=== PATIENT | female | born 1955 | race Caucasian/White ===

== ENCOUNTER → 2017-08-21 | Outpatient (CLI) | payer MEDICARE, OTHER ==
[~2017-08-21] MED LIST: ACET650T9 PO; ALE70 PO; ALL-DPT PO; AMIT-108 PO; AMOX-559 PO; ASP81 PO; AZEL50GE4 TP; AZIT-1 PO; BIOTENE DRY MO237 ML MM; CALC-515 PO; CALC500T42 PO; CEFD300C35 PO; CHOL200074 PO; CLIN30GE14 TP; DAR100 PO; DEXL30CA5 PO; DIA2 PO; DIAZ-308 PO; DIC10 PO; DIPH-638 PO; DULO30CA6 PO; DULO60CA56 PO; DYA PO; ESTR42.59 VG; ESZO1TAB16 PO; FAMO-64 PO; FENO45CA PO; FENO54TA6 PO; FEXO1TAB63 PO; FLAX100041 PO; FLUT10SP; FLUT16SP20 NS; FURO-45 PO; GABA-503 PO; GABA-549 PO; GUALA600 PO; HYDR-317 PO; HYDR-385 PO; HYDR-389 PO; HYDR28.33 PR; HYDR2TAB41 PO; IBU200 PO; LAN30PT PO; LEV100 PO; LEVO-3 PO; LEVO-85 PO; LEVO100T95 PO; LEVO112T44 PO; LIDO700A29 TD; LIFI1DRO OU; MAGN30TA5 PO; MAX75 PO; MELA1TAB23 PO; MELO-149 PO; METH4TAB66 PO; METO-253 PO; METO25TA23 PO; METR1COM3 TP; MIL50PT PO; MONT10TA PO; ONDA4TAB PO; ONDA4TAB97 PO; OXYM-1 ENA; PANT40TA65 PO; PER PO; POTA20TA94 PO; PRED20TA6 PO; RANI-324 PO; RANI75TA5 PO; TRAM-420 PO; TRIA1CAP85 PO; TYLENOL ARTHRITIS; ZOST19404 SQ; [UNRECOGNIZED DRUG - CODE] PO; [UNRECOGNIZED DRUG - CODE] PO; estrogen cream VG
== END ==
LOC: RESP 02:51
PROVIDERS: ATTEND Nurse Practitioner Family
DX: G47.33 Obstructive sleep apnea (adult) (pediatric) (principal)

== ENCOUNTER → 2017-09-29 | Outpatient (CLI) | payer MEDICARE, OTHER | LOC: RESP 19:52 | PROVIDERS: ATTEND Nurse Practitioner Family | DX: G47.33 Obstructive sleep apnea (adult) (pediatric) (principal); G47.36 Sleep related hypoventilation in conditions classified elsewhere; E66.9 Obesity, unspecified ==

== ENCOUNTER → 2017-10-06 | Outpatient (CLI) | payer MEDICARE, OTHER ==
--- NOTE | 2017-10-06 10:00 | RADIOLOGY IMAGING REPORT ---
FACILITY: [facility] PATIENT NAME: ISI MORALES : [id number] MR: [id number] V: [id number] EXAM DATE: ORDERING PHYSICIAN: JOMAR QUIROZ TECHNOLOGIST: Pratima Francisco PROCEDURE:BILATERAL DIGITAL SCREENING MAMMOGRAM WITH CAD ASSISTED INTERPRETATION & 3D TOMOSYNTHESIS COMPARISON:Prior mammograms 09/06/16, 08/25/15, 04/24/13, 05/05/11. INDICATIONS:SCREENING FINDINGS: A small amount of fibroglandular tissue is seen throughout the breasts. The parenchymal pattern has remained stable allowing for difference in mammographic technique & patient positioning. There is no evidence of malignant appearing mass, malignant appearing calcifications or other secondary sign of malignancy in either breast. DIAGNOSTIC CATEGORY 1--NEGATIVE. RECOMMENDATIONS: ROUTINE MAMMOGRAM AND CLINICAL EVALUATION. IMPRESSION: BIRADS 1: Negative No significant abnormality is seen. Dictated by: Bren Man M.D. on 10/06/2017 at 9:14 Transcribed by: ARYA on 10/06/2017 at 9:19 Approved by: Bren Man M.D. on 10/06/2017 at 9:59 [facility]
== END ==
LOC: MAMO 04:03
PROVIDERS: ATTEND Nurse Practitioner Family
DX: Z12.31 Encounter for screening mammogram for malignant neoplasm of breast (principal)
CPT/HCPCS: 77063; 77067

== ENCOUNTER → 2017-11-22 | Outpatient (CLI) | payer MEDICARE, OTHER ==
[~2017-11-22] MED LIST changes: -RANI-324 PO; +RANI-366 PO; +ZOLP-1 PO; +ZOLP-358 PO
== END ==
LOC: RESP 20:55
PROVIDERS: ATTEND Nurse Practitioner Family
DX: G47.33 Obstructive sleep apnea (adult) (pediatric) (principal); G47.61 Periodic limb movement disorder; G47.36 Sleep related hypoventilation in conditions classified elsewhere; E66.9 Obesity, unspecified

== ENCOUNTER → 2018-05-17 | Outpatient (CLI) | payer MEDICARE, OTHER ==
[~2018-05-17] MED LIST changes: +ALB18R IH; +CELE-1 PO; -RANI75TA5 PO; +RANI75TA51 PO
--- NOTE | 2018-05-17 10:45 | RADIOLOGY IMAGING REPORT ---
FACILITY: [facility] PATIENT NAME: Lucie Encarnacion : 1955 MR: [id number] V: [id number] EXAM DATE: ORDERING PHYSICIAN: JOMAR QUIROZ TECHNOLOGIST: Location: [facility] Patient: Lucie Encarnacion : 1955 Visit/Account:[id number] Date of Sevice: 05/17/2018 WRIST RIGHT MIN 3 VIEW Indication: Pain after fall Comparison: None Available Findings: No evidence of fracture, dislocation, or acute osseous abnormality right wrist. No evidence of radiopaque foreign body. There is no focal soft tissue abnormality. IMPRESSION: 1.No acute osseous abnormality right wrist Report Dictated By: Gasper Rodas at 05/17/2018 10:39 AM Report E-Signed By: Gasper Rodas at 05/17/2018 10:40 AM WSN:[id number]
--- NOTE | 2018-05-17 10:46 | RADIOLOGY IMAGING REPORT ---
FACILITY: [facility] - [place], [place] PATIENT NAME: Lucie Encarnacion : 1955 MR: [id number] V: [id number] EXAM DATE: ORDERING PHYSICIAN: JOMAR QUIROZ TECHNOLOGIST: Location: [facility] [place] Patient: Lucie Encarnacion : 1955 Visit/Account:[id number] Date of Sevice: 05/17/2018 ELBOW 3 VIEWS RIGHT Indication: Pain after fall Comparison: None Available Findings: No evidence of fracture, dislocation, or acute osseous abnormality right elbow. There is a trace joint effusion. There is no focal soft tissue abnormality. No evidence of radiopaque foreign body. IMPRESSION: 1. Small joint effusion but no fracture is identified. Report Dictated By: Gasper Rodas at 05/17/2018 10:40 AM Report E-Signed By: Gasper Rodas at 05/17/2018 10:41 AM WSN:[id number]
== END ==
LOC: LAB 08:57
PROVIDERS: ATTEND Nurse Practitioner Family
DX: M25.431 Effusion, right wrist (principal); M25.531 Pain in right wrist

== ENCOUNTER 2018-08-23 00:07 | Day surgery (SDC) | payer MEDICARE, OTHER ==
[~2018-08-23] VITALS: Ht 167.6 cm; Wt 71.7 kg
[~2018-08-23 00:07] MED LIST changes: -GABA-503 PO; +GABA-533 PO; +LIDOCAINE/SOD BICARB 8.4% SYR ID ONE; +NORMOSOL R SOLN(*) 1000 ML BAG 1,000 ML IV PRN; +OMEP-218 PO; +PNEU0.5D3 IM
[2018-08-23 07:50] VITALS: BP 128/78
[2018-08-23] MEDS ORDERED: LIDOCAINE/SOD BICARB 8.4% SYR ID ONE (08:00)
[2018-08-23] MEDS ORDERED: NORMOSOL R SOLN(*) 1000 ML BAG 1,000 ML IV PRN (08:00)
[2018-08-23] MEDS ORDERED: PROPOFOL EMUL(*) 10MG/ML 20 ML 20 ML ONE ×2 (08:17→09:26)
[2018-08-23 09:41] VITALS: BP_SYST 109; BP_SYST 190; BP_DIAS 80
[2018-08-23 10:00] VITALS: BP 120/72
[2018-08-23 10:16] VITALS: BP 128/64
[2018-08-23 10:21] VITALS: BP 120/75
[2018-08-24] MEDS ORDERED: FENO54TA6 PO (13:20)
== END 2018-08-23 10:38 | disposition home or self-care (01) ==
LOC: OR 00:07
PROVIDERS: ATTEND Internal Medicine Gastroenterology
DX: K44.9 Diaphragmatic hernia without obstruction or gangrene (principal); K20.9 Esophagitis, unspecified; K22.2 Esophageal obstruction; K29.70 Gastritis, unspecified, without bleeding; K31.7 Polyp of stomach and duodenum
CPT/HCPCS: 43248; 43251; 88305; 88313; 88344; J2704

== ENCOUNTER → 2018-10-25 | Outpatient (CLI) | payer MEDICARE, OTHER ==
[~2018-10-25] MED LIST changes: -LIDOCAINE/SOD BICARB 8.4% SYR ID ONE; -NORMOSOL R SOLN(*) 1000 ML BAG 1,000 ML IV PRN
--- NOTE | 2018-10-25 10:29 | RADIOLOGY IMAGING REPORT ---
FACILITY: [facility] - [place] PATIENT NAME: Lucie Encarnacion : 1955 MR: [id number] V: [id number] EXAM DATE: ORDERING PHYSICIAN: JOMAR QUIROZ TECHNOLOGIST: Location: [facility] [place] Patient: Lucie Encarnacion : 1955 Visit/Account:[id number] Date of Sevice: 10/25/2018 DEXA Scan 10/25/2018 9:20 AM HISTORY: screening Comparison: DEXA scan from 05/11/2007. LUMBAR SPINE: The bone mineral density (BMD) measured from L1-L4 correlates with a Z-score of 0.1 and a T-score of -1.2 which is mildly osteopenic as defined by the World Health Organization. The corresponding risk of fracture in the lumbar spine is increased 2-3 times compared with a young adult reference populati on. This value has decreased by 1.5 % since the prior study. More than 5% change is considered sign ificant. HIP: Bone mineral density (BMD) measured in the Left total hip region correlates with a Z-score -0.2 and a T-score of -1.3 which is mildly osteopenic as defined by the World Health Organization. The corresp onding risk of fracture in the hip is increased 2-3 times compared with a young adult reference popul ation. This value has decreased by 4.4 % since the prior study. More than 5% change is considered si gnificant. Bone mineral density (BMD) measured in the Femoral Neck region measures 0.854 g/cm2. T-score is -1. 3. IMPRESSION: 1. Lumbar spine: Mild osteopenia. There has been No significant change in the bone mineral density since the previous exam. 2. Left Total Hip: Mild osteopenia. There has been a not significant interval decrease in the bone mineral density since the previous exam. 3. Femoral Neck: Bone Mineral Density is 0.854 g/cm2. Mild osteopenia. The next DEXA scan of this patient should include the following sites: L1-L4 and the left hip. FRAX? WHO Fracture Risk Assessment Tool link: <http://www.shef.ac.uk/FRAX/tool.jsp?locationValue=9> PLEASE NOTE: 1) The World Health Organization defines low BMD as follows: T-score Normal > -1 Osteopenia < -1 and > -2.5 Osteoporosis < -2.5 without fractures Established osteoporosis < -2.5 with fractures 2) In general, you may wish to consider: Diagnosis Treatment Follow-up DEXA Normal BMD Prevention 2-3 years Osteopenia Prevention/therapy 1-2 years Osteoporosis Therapy Yearly 3) Fracture risk estimated from the T-score is more accurate for vertebral fractures (often spontane ous) than for hip fractures. Report Dictated By: Kevan Lamb MD at 10/25/2018 10:23 AM Report E-Signed By: Kevan Lamb MD at 10/25/2018 10:26 AM SYLN:[id number]
--- NOTE | 2018-10-26 11:25 | RADIOLOGY IMAGING REPORT ---
FACILITY: [facility] - [place] PATIENT NAME: ISI MORALES : [id number] MR: [id number] V: [id number] EXAM DATE: [id number] ORDERING PHYSICIAN: JOMAR QUIROZ TECHNOLOGIST: Aparna Cabral PROCEDURE:BILATERAL DIGITAL SCREENING MAMMOGRAM WITH CAD ASSISTED INTERPRETATION & 3D TOMOSYNTHESIS COMPARISON:Prior mammograms dated 10/06/17, 09/06/16, 08/25/15, 04/24/13 INDICATIONS:screening FINDINGS: There are scattered areas of fibroglandular density throughout the breasts. The parenchymal pattern has remained stable when allowing for difference in mammographic technique & patient positioning. DIAGNOSTIC CATEGORY 1--NEGATIVE. RECOMMENDATIONS: ROUTINE MAMMOGRAM AND CLINICAL EVALUATION. IMPRESSION: BIRADS 1: Negative. No significant abnormality is seen. Dictated by: Bren Man M.D. on 10/25/2018 at 15:08 Transcribed by: TATA on 10/26/2018 at 9:29 Approved by: Bren Man M.D. on 10/26/2018 at 11:24 [facility]
== END ==
LOC: MAMO 00:52
PROVIDERS: ATTEND Nurse Practitioner Family
DX: Z13.820 Encounter for screening for osteoporosis (principal); Z12.31 Encounter for screening mammogram for malignant neoplasm of breast; M85.88 Other specified disorders of bone density and structure, other site; M85.852 Other specified disorders of bone density and structure, left thigh; Z80.3 Family history of malignant neoplasm of breast
CPT/HCPCS: 77063; 77067; 77080